=== PATIENT | male | born 1985 | race Caucasian/White ===

== ENCOUNTER 2017-09-06 05:26 | Emergency (ER) | payer SELFPAY | END 2017-09-06 06:28 | disposition home or self-care (01) | LOC: ERS 05:26 | DX: J36 Peritonsillar abscess (principal); F17.210 Nicotine dependence, cigarettes, uncomplicated | CPT/HCPCS: 87081; 87430; 99406 ==

== ENCOUNTER 2018-05-11 17:23 | Emergency (ER) | payer SELFPAY | END 2018-05-11 18:13 | disposition home or self-care (01) | LOC: SCSER 17:23 | DX: L03.311 Cellulitis of abdominal wall (principal); F17.210 Nicotine dependence, cigarettes, uncomplicated | CPT/HCPCS: 99283 ==

== ENCOUNTER 2018-05-14 19:18 | Inpatient (IN) | payer SELFPAY ==
[2018-05-14 19:49] LABS: #Basophils 0.1 thou/uL (0.0-0.2); #Eosinphils 0.1 thou/uL (0.0-0.7); #Lymphocytes 2.7 thou/uL (1.20-3.40); #Monocytes 0.9 thou/uL (0.11-0.59); #Neutrophils 8.5 thou/uL (1.40-6.50); %Basophils 0.5 % (0.0-1.0); %Eosinophils 0.5 % (0.0-10.0); %Lymphocytes 22.3 % (21.0-51.0); %Monocytes 7.3 % (0.0-10.0); %Neutrophils 69.4 % (42.0-75.0); Hemoglobin 15.8 g/dL (14.0-18.0); Mean Corpuscular Hemoglobin 28.4 pg (27.0-31.0); Mean Corpuscular Volume 81.3 fL (78.0-98.0); Mean Platelet Volume 9.1 fL (7.4-10.4); Platelet Count 161 thou/uL (130-400); RBC Distribution Width 10.4 % (11.5-14.5); Red Blood Cell (RBC) Count 5.56 mill/uL (4.70-6.10); White Blood Cell (WBC) Count 12.2 thou/uL (4.8-10.8)
[2018-05-14] MEDS ORDERED: Clindamycin/D5W 900 mg/50 ml Premix Bag ONE (19:56)
[2018-05-14] MEDS ORDERED: Piperacillin/Tazobactam 4.5 GM VIAL ONE (19:56)
[2018-05-14] MEDS ORDERED: Sodium Chloride 0.9% 100 ML ONE (19:58)
[2018-05-14 20:02] LABS: ALT (SGPT) 14 U/L (8-55); AST (SGOT) 14 U/L (5-34); Albumin 4.4 g/dL (3.5-5.0); Alkaline Phosphatase 52 U/L (40-150); Anion Gap 15 mmol/L (10-20); BUN (Urea Nitrogen) 13 mg/dL (8.9-20.6); Bilirubin, Total 0.6 mg/dL (0.2-1.2); Calc. Creatinine Clearance 0 mL/min (70-130); Carbon Dioxide 27 mmol/L (22-29); Chloride 101 mmol/L (98-107); Estimated GFR-MDRD 84; Globulin 3.2 g/dL (2.4-3.5); Glucose 89 mg/dL (70-105); Potassium 4.2 mmol/L (3.5-5.1); Protein, Total 7.6 g/dL (6.0-8.3); Sodium 139 mmol/L (136-145)
[2018-05-14] MEDS ORDERED: Ondansetron ODT 4 MG TAB SL PRN (22:05)
[2018-05-14] MEDS ORDERED: HYDROcodone/Acetaminophen 5/325 mg Tablet PO PRN (22:05)
[2018-05-14] MEDS ORDERED: Ondansetron HCl/PF 4 MG/2 ML Vial IVP PRN (22:05)
[2018-05-14 22:36] VITALS: BMI 24.4
[2018-05-14] MEDS: Nicotine 14 MG PATCH TD SCH (23:03)
[2018-05-14] MEDS: Sodium Chloride 0.9% 1,000 ML IV SCH (23:03)
[2018-05-14] MEDS ORDERED: Vancomycin HCl 1.5 GM in Sodium Chloride 0.9% 250 ML 300 ML IVPB SCH (23:59)
[2018-05-15] MEDS: Piperacillin/Tazobactam 4.5 GM in Sodium Chloride 0.9% 100 ML IVPB SCH ×4 (02:10→21:00)
[2018-05-15] MEDS: HYDROcodone/Acetaminophen 5/325 mg Tablet PO PRN ×2 (02:14→08:37)
--- NOTE | 2018-05-15 03:13 | HP ---
CODE STATUS: FULL CODE. PRIMARY CARE PHYSICIAN: None. CHIEF COMPLAINT: Redness and worsening cellulitis of the right lower quadrant. HISTORY OF PRESENT ILLNESS: A 32-year-old male patient, no significant past medical history. The pa demetri reported that about 5 days ago, he shaved his abdomen and started noticing that he had some pim ples, that started getting worse, associated with abdominal wall swelling, redness, tenderness, drain age, no alleviating factors. Patient was started yesterday on Bactrim and Keflex, but symptoms nely nued to get worse. He went to the ED as he started on broad spectrum antibiotics and we will place h im in the hospital due to abscess of the abdominal wall and failed to outpatient antibiotic. REVIEW OF SYSTEMS: Constitutional: No fever or chills, generalized weakness. Respiratory: No coug h, sputum production or shortness of breath. Cardiovascular: No chest pain, palpitations, shortness of breath. Gastrointestinal: No nausea, vomiting, diarrhea or abdominal pain. RUG HOOKER HAND: No dizziness, headache or feeling lightheaded. Genitourinary: No burning on urination. Extremities: No leg swe lling. Skin: The patient has multiple follicular lesions that are secondarily infected over the low er abdomen, but the main lesion which showing an area of induration of ____ cm with tenderness, redne ss. All other systems reviewed were negative except for the findings mentioned above. PAST MEDICAL HISTORY: No significant past medical history. FAMILY HISTORY: Reviewed and noncontributory for current presentation. PAST SURGICAL HISTORY: Right wrist surgery. PSYCHIATRIC HISTORY: No previous psychiatric history. SOCIAL HISTORY: Patient smokes half a pack per day. ALLERGIES: No known drug allergies reported. MEDICATIONS AT HOME: Bactrim-DS, Keflex and tramadol. PHYSICAL EXAMINATION: VITAL SIGNS: On presentation, blood pressure 152/96, heart rate 97, respiratory rate was 20, tempera ture 97.5, oxygen saturation on room air was 100%. GENERAL: Patient is alert, oriented, not in any acute distress. HEENT: Eyes, normal conjunctivae. Moist oral mucosa. Anicteric. NECK: No JVD. RESPIRATORY: Bilateral air entry. No rales, no wheezing. Symmetric expansion. CARDIOVASCULAR: Normal rate, regular rhythm. No murmur, no gallop, no edema. ABDOMEN: Soft, normal bowel sounds. MUSCULOSKELETAL: Baseline range of motion and strength. No tenderness. SKIN: Warm and intact. No pallor, rash or redness except for the right lower quadrant, there is an area of induration about ____ cm with opening and drainage from the wound, there is surrounding redne ss, tenderness. NEUROLOGIC: Baseline sensorium. No evidence of any focal weakness. Baseline speech. Cranial nerve s seem to be intact. PSYCHIATRIC: Patient is in a good mood. No anxiety. Oriented. Optimal judgment. LABORATORY DATA: Reviewed. White count is 12.2, hemoglobin 15.8, platelet count 161. Chemistry: S odium 139, potassium 4.2, chloride 101, carbon dioxide 27, anion gap 15, BUN 13, creatinine 1.0, GFR 82, glucose 89, lactic acid 1.5, calcium 10. LFTs were normal. ASSESSMENT AND PLAN: Patient will be placed in the hospital with the following medical problems. 1. Right lower quadrant abdominal wall cellulitis, with area of induration likely secondary to absce ss. Patient has significant drainage from wound opening, patient has been started on broad spectrum antibiotics, will continue. Follow cultures. Adjust the treatment as needed. Possible history of s epsis. The patient has heart rate of 90 multiple times, white count 12.2, source is abdominal wall c ellulitis: Treatment as above. Hydrate. 2. Deep venous thrombosis prophylaxis. 3. Every-day smoker, smoked half a pack per day, advised to stop smoking, nicotine patch was ordered . 4. If patient is improving and no concern for deep tissue infection, might need to do a CT abdomen t o make sure examination of the abscess.
[2018-05-15] MEDS ORDERED: Clindamycin/D5W 900 MG in Premix Bag 1 BAG IVPB SCH (06:00)
[2018-05-15] MEDS: Vancomycin HCl 1.25 GM in Sodium Chloride 0.9% 250 ML 250 ML IVPB SCH ×3 (08:34→23:41)
[2018-05-15] MEDS: Sodium Chloride 0.9% 1,000 ML IV SCH (08:34)
[2018-05-15] MEDS: Enoxaparin Sodium 40 MG/0.4 ML SYRINGE SC SCH (08:35)
[2018-05-15] MEDS ORDERED: Loratadine 10 MG TAB PO PRN (11:44)
[2018-05-15] MEDS ORDERED: Famotidine 20 MG TAB PO PRN (11:44)
[2018-05-15] MEDS ORDERED: Loperamide HCl 2 MG CAP PO PRN (11:44)
[2018-05-15] MEDS ORDERED: Milk Of Magnesia 30 ML UDCUP PO PRN (11:44)
[2018-05-15] MEDS ORDERED: Artificial Tears 18 DROP/0.9 ML EA EYE PRN (11:44)
[2018-05-15] MEDS ORDERED: Chloraseptic Spray 180 ml Bottle PO PRN (11:44)
[2018-05-15] MEDS ORDERED: Sodium Chloride 0.65% Nasal 44 ML BOT EA NARE PRN (11:44)
[2018-05-15] MEDS ORDERED: Eucerin (Mineral Oil/Petrolatum,White) 30 gm Jar TOP PRN (11:44)
[2018-05-15] MEDS ORDERED: Temazepam 15 MG CAP PO PRN (11:44)
[2018-05-15] MEDS ORDERED: Ondansetron ODT 4 MG TAB PO PRN (11:44)
[2018-05-15] MEDS ORDERED: hydrALAZINE 20 MG/ML VIAL SLOW IVP PRN (11:44)
[2018-05-15] MEDS ORDERED: Senokot 8.6 MG TAB PO PRN (11:44)
[2018-05-15] MEDS ORDERED: Mag-Al 1200 mg/1200 mg/30 ML UDCUP PO PRN (11:44)
[2018-05-15] MEDS ORDERED: Diabetic Tussin 200 MG/10 ML UDCUP PO PRN (11:44)
--- NOTE | 2018-05-15 11:44 | PDOC.PN ---
- Subjective Encounter Start Date: 05/15/18 Encounter Start Time: 10:30 -: old records requested/rev Patient seen and examined. No new complaints. No overnight events - Objective Resuscitation Status: Resuscitation Status FULL:Full Resuscitation MAR Reviewed: Yes Vital Signs & Weight: Vital Signs (12 hours) Temp Pulse Resp BP Pulse Ox 05/15/18 10:56 97.7 F 92 18 134/83 98 05/15/18 08:00 97.8 F 90 20 05/15/18 07:39 97.8 F 90 20 139/79 97 05/15/18 04:00 98.2 F 98 18 128/81 99 Weight Weight 185 lb 3.013 oz I&O: 05/14/18 05/15/18 05/16/18 06:59 06:59 06:59 Intake Total 1300 Balance 1300 Result Diagrams: 05/14/18 19:40 05/14/18 19:40 Phys Exam - Physical Examination Constitutional: NAD HEENT: PERRLA, moist MMs, sclera anicteric Neck: no JVD, supple Respiratory: no wheezing, no rales, no rhonchi Cardiovascular: RRR, no significant murmur, no rub Gastrointestinal: soft, non-tender, no distention, positive bowel sounds abdominal wall cellulitis noted Musculoskeletal: no edema, pulses present Neurological: non-focal, normal sensation, moves all 4 limbs Lymphatic: no nodes Psychiatric: normal affect, A&O x 3 Skin: no rash, normal turgor Dx/Plan (1) Cellulitis, abdominal wall Code(s): L03.311 - CELLULITIS OF ABDOMINAL WALL Status: Acute (2) Failure of outpatient treatment Code(s): Z78.9 - OTHER SPECIFIED HEALTH STATUS Status: Acute (3) Tobacco abuse Code(s): Z72.0 - TOBACCO USE Status: Chronic - Plan cont current plan of care, continue antibiotics * continue vancomycin and zosyn * monitor clinical response * DC IVF * counselled to quit smoking * medication reviewed as below * symptomatic treatment * pain controlled. Review of Systems - Review of Systems Constitutional: negative: fever, chills, sweats, weakness, malaise, other Eyes: negative: Pain, Vision Change, Conjunctivae Inflammation, Eyelid Inflammation, Redness, Other ENT: negative: Ear Pain, Ear Discharge, Nose Pain, Nose Discharge, Nose Congestion, Mouth Pain, Mouth Swelling, Throat Pain, Throat Swelling, Other Respiratory: negative: Cough, Dry, Shortness of Breath, Hemoptysis, SOB with Excertion, Pleuritic Pain, Sputum, Wheezing Cardiovascular: negative: chest pain, palpitations, orthopnea, paroxysmal nocturnal dyspnea, edema, light headedness, other Gastrointestinal: negative: Nausea, Vomiting, Abdominal Pain, Diarrhea, Constipation, Melena, Hematochezia, Other Genitourinary: negative: Dysuria, Frequency, Incontinence, Hematuria, Retention , Other Musculoskeletal: negative: Neck Pain, Shoulder Pain, Arm Pain, Back Pain, Hand Pain, Leg Pain, Foot Pain, Other - Medications/Allergies Allergies/Adverse Reactions: Allergies Allergy/AdvReac Type Severity Reaction Status Date / Time No Known Allergies Allergy Unverified 05/14/18 22:02 Medications: Current Medications Acetaminophen (Tylenol) 650 mg PO Q4H PRN PRN Reason: Headache/Fever or Pain Enoxaparin Sodium (Lovenox) 40 mg SC 0900 [facility] Last Admin: 05/15/18 08:35 Dose: Not Given Piperacillin Sod/Tazobactam (Sod 4.5 gm/ Sodium Chloride) 100 mls @ 200 mls/hr IVPB 0200,0800,1400,2000 [facility] Stop: 05/19/18 08:20 Last Admin: 05/15/18 10:34 Dose: 100 mls Vancomycin HCl 1.25 gm/ Sodium (Chloride) 250 mls @ 166.667 mls/hr IVPB 0800, 1600,2359 [facility] [place] Last Admin: 05/15/18 08:34 Dose: 250 mls Miscellaneous Medication (Pharmacy To Dose) 0 each IVPB PRN PRN PRN Reason: [facility] TO DOSE Nicotine (Nicoderm Patch) 14 mg TD Q24HR [facility] [place] Last Admin: 05/14/18 23:03 Dose: 14 mg Ondansetron HCl (Zofran) 4 mg IVP Q6H PRN PRN Reason: Nausea/Vomiting Stop: 05/17/18 08:20 Sodium Chloride (Flush - Normal Saline) 10 ml IVF Q12HR [facility] [place] Last Admin: 05/15/18 08:35 Dose: Not Given Sodium Chloride (Flush - Normal Saline) 10 ml IVF PRN PRN PRN Reason: Saline Flush
[2018-05-15] MEDS ORDERED: Acetaminophen/Codeine 30-300mg Tablet PO PRN (11:46)
[2018-05-15] MEDS: Acetaminophen/Codeine 30-300mg Tablet PO PRN (19:08)
[2018-05-15] MEDS: Nicotine 14 MG PATCH TD SCH ×2 (22:07→22:12)
[2018-05-15 22:45] LABS: #Eosinphils 0.2 thou/uL (0.0-0.7); #Lymphocytes 3.6 thou/uL (1.20-3.40); #Monocytes 0.7 thou/uL (0.11-0.59); #Neutrophils 4.2 thou/uL (1.40-6.50); %Basophils 0.2 % (0.0-1.0); %Eosinophils 1.8 % (0.0-10.0); %Lymphocytes 41.2 % (21.0-51.0); %Monocytes 8.4 % (0.0-10.0); %Neutrophils 48.4 % (42.0-75.0); Hemoglobin 14.7 g/dL (14.0-18.0); Mean Corpuscular HGB CONC 35.1 g/dL (32.0-36.0); Mean Corpuscular Hemoglobin 30.2 pg (27.0-31.0); Mean Platelet Volume 7.4 fL (7.4-10.4); Platelet Count 164 thou/uL (130-400); RBC Distribution Width 11.5 % (11.5-14.5); Red Blood Cell (RBC) Count 4.86 mill/uL (4.70-6.10); White Blood Cell (WBC) Count 8.6 thou/uL (4.8-10.8)
[2018-05-15 23:14] LABS: Anion Gap 11 mmol/L (10-20); BUN (Urea Nitrogen) 9 mg/dL (8.9-20.6); Calc. Creatinine Clearance 119 mL/min (70-130); Calcium 9.1 mg/dL (7.8-10.44); Carbon Dioxide 29 mmol/L (22-29); Chloride 105 mmol/L (98-107); Estimated GFR-MDRD 82; Glucose 97 mg/dL (70-105); Potassium 3.7 mmol/L (3.5-5.1); Sodium 141 mmol/L (136-145)
[2018-05-16] MEDS: Piperacillin/Tazobactam 4.5 GM in Sodium Chloride 0.9% 100 ML IVPB SCH ×4 (02:50→19:55)
[2018-05-16] MEDS: Vancomycin HCl 1.25 GM in Sodium Chloride 0.9% 250 ML 250 ML IVPB SCH ×3 (08:10→23:47)
[2018-05-16] MEDS: Enoxaparin Sodium 40 MG/0.4 ML SYRINGE SC SCH (08:12)
--- NOTE | 2018-05-16 12:15 | PDOC.PN ---
- Subjective Encounter Start Date: 05/16/18 Encounter Start Time: 09:20 Patient seen and examined. No new complaints. No overnight events - Objective Resuscitation Status: Resuscitation Status FULL:Full Resuscitation MAR Reviewed: Yes Vital Signs & Weight: Vital Signs (12 hours) Temp Pulse Resp BP Pulse Ox 05/16/18 07:39 97.8 F 72 14 113/75 98 Weight Weight 185 lb 3.013 oz I&O: 05/15/18 05/16/18 05/17/18 06:59 06:59 06:59 Intake Total 1300 Balance 1300 Result Diagrams: 05/15/18 22:38 05/15/18 22:38 Phys Exam - Physical Examination Constitutional: NAD HEENT: PERRLA, moist MMs, sclera anicteric Neck: no JVD, supple Respiratory: no wheezing, no rales, no rhonchi Cardiovascular: RRR, no significant murmur, no rub Gastrointestinal: soft, non-tender, no distention, positive bowel sounds abdominal wall abscess, cellulitis improving Musculoskeletal: no edema, pulses present Neurological: non-focal, normal sensation, moves all 4 limbs Psychiatric: normal affect, A&O x 3 Skin: no rash, normal turgor Dx/Plan (1) Cellulitis, abdominal wall Code(s): L03.311 - CELLULITIS OF ABDOMINAL WALL Status: Acute (2) Failure of outpatient treatment Code(s): Z78.9 - OTHER SPECIFIED HEALTH STATUS Status: Acute (3) Tobacco abuse Code(s): Z72.0 - TOBACCO USE Status: Chronic - Plan cont current plan of care, continue antibiotics * will consult general surgery, as he will need I & D * continue vancomycin and zosyn * medication reviewed as below * symptomatic treatment * overall improving cellulitis. Review of Systems - Review of Systems Eyes: negative: Pain, Vision Change, Conjunctivae Inflammation, Eyelid Inflammation, Redness, Other ENT: negative: Ear Pain, Ear Discharge, Nose Pain, Nose Discharge, Nose Congestion, Mouth Pain, Mouth Swelling, Throat Pain, Throat Swelling, Other Respiratory: negative: Cough, Dry, Shortness of Breath, Hemoptysis, SOB with Excertion, Pleuritic Pain, Sputum, Wheezing Cardiovascular: negative: chest pain, palpitations, orthopnea, paroxysmal nocturnal dyspnea, edema, light headedness, other Gastrointestinal: negative: Nausea, Vomiting, Abdominal Pain, Diarrhea, Constipation, Melena, Hematochezia, Other Genitourinary: negative: Dysuria, Frequency, Incontinence, Hematuria, Retention , Other Musculoskeletal: negative: Neck Pain, Shoulder Pain, Arm Pain, Back Pain, Hand Pain, Leg Pain, Foot Pain, Other Skin: negative: Rash, Lesions, Gonzalo, Bruising, Other - Medications/Allergies Allergies/Adverse Reactions: Allergies Allergy/AdvReac Type Severity Reaction Status Date / Time No Known Allergies Allergy Unverified 05/14/18 22:02 Medications: Current Medications Acetaminophen (Tylenol) 650 mg PO Q4H PRN PRN Reason: Headache/Fever or Pain Acetaminophen/Codeine Phosphate (Tylenol #3) 1 tab PO Q4H PRN PRN Reason: Moderate Pain (4-6) Acetaminophen/Codeine Phosphate (Tylenol #3) 2 tab PO Q4H PRN PRN Reason: Pain Last Admin: 05/15/18 19:08 Dose: 2 tab Al Hydroxide/Mg Hydroxide (Maalox) 15 ml PO Q4H PRN PRN Reason: Heartburn or Indigestion Artificial Tears (Tears Naturale) 0 drop EA EYE PRN PRN PRN Reason: Dry Eyes Enoxaparin Sodium (Lovenox) 40 mg SC 0900 [facility] Last Admin: 05/16/18 08:12 Dose: Not Given Famotidine (Pepcid) 20 mg PO BIDPRN PRN PRN Reason: Heartburn or Indigestion Guaifenesin (Robitussin Sf) 200 mg PO Q4H PRN PRN Reason: Cough Hydralazine HCl (Apresoline) 10 mg SLOW IVP Q4H PRN PRN Reason: Systolic BP > 180 Piperacillin Sod/Tazobactam (Sod 4.5 gm/ Sodium Chloride) 100 mls @ 200 mls/hr IVPB 0200,0800,1400,2000 [facility] Stop: 05/19/18 08:20 Last Admin: 05/16/18 07:00 Dose: 100 mls Vancomycin HCl 1.25 gm/ Sodium (Chloride) 250 mls @ 166.667 mls/hr IVPB 0800, 1600,2359 [facility] Last Admin: 05/16/18 08:10 Dose: 250 mls Loperamide HCl (Imodium) 2 mg PO PRN PRN PRN Reason: Diarrhea/Loose Stools Loratadine (Claritin) 10 mg PO DAILYPRN PRN PRN Reason: Sinus Symptoms Magnesium Hydroxide (Milk Of Magnesium) 30 ml PO DAILYPRN PRN PRN Reason: Constipation Mineral Oil/White Petrolatum (Eucerin Cream) 0 gm TOP BIDPRN PRN PRN Reason: Dry Skin Miscellaneous Medication (Pharmacy To Dose) 0 each IVPB PRN PRN PRN Reason: [facility] TO DOSE Nicotine (Nicoderm Patch) 14 mg TD Q24HR [facility] Last Admin: 05/15/18 22:12 Dose: Not Given Ondansetron HCl (Zofran) 4 mg IVP Q6H PRN PRN Reason: Nausea/Vomiting Stop: 05/17/18 08:20 Ondansetron HCl (Zofran Odt) 4 mg PO Q6H PRN PRN Reason: Nausea/Vomiting Phenol (Chloraseptic [place] 180 Ml Bot) 0 ml PO PRN PRN PRN Reason: Sore Throat Senna (Senokot) 2 tab PO HSPRN PRN PRN Reason: Constipation Sodium Chloride (Flush - Normal Saline) 10 ml IVF Q12HR [facility] Last Admin: 05/16/18 08:12 Dose: Not Given Sodium Chloride (Flush - Normal Saline) 10 ml IVF PRN PRN PRN Reason: Saline Flush Sodium Chloride ([place] Nasal [place] 0.65%) 0 ml EA NARE QIDPRN PRN PRN Reason: Nasal Congestion Temazepam (Restoril) 15 mg PO HSPRN PRN PRN Reason: Insomnia
[2018-05-16] MEDS: Acetaminophen/Codeine 30-300mg Tablet PO PRN (13:10)
[2018-05-16 14:08] VITALS: TEMP 98.2
--- NOTE | 2018-05-16 19:48 | ULT ---
LIMITED ULTRASOUND OF THE SOFT TISSUES ABDOMINAL WALL 05/16/18 HISTORY: Open wound right lower quadrant of abdomen. FINDINGS: Limited sonographic evaluation in the region of concern is performed. There is a mild heterogeneous a raphael at the level and just beneath the skin surface measuring 2.3 cm x 0.4 cm which may be region of p atient's wound. No additional fluid collection is visualized. IMPRESSION: Subcutaneous edema with findings likely corresponding to patient's wound in the most anterior aspect of the abdomen in region of concern. POS: JAZH
[2018-05-16] MEDS: Nicotine 14 MG PATCH TD SCH (19:55)
[2018-05-16 19:59] VITALS: BP 121/71
[2018-05-16] MEDS: Acetaminophen 325 MG TAB PO PRN (23:52)
--- NOTE | 2018-05-16 23:52 | CON ---
DATE OF CONSULTATION: 05/16/2018 REQUESTING PHYSICIAN: Dr. Benson. ATTENDING PHYSICIAN: Dr. Villalta. HISTORY OF PRESENT ILLNESS: Mr. Chow is a 32-year-old male, who presented to the [place] [facility] on 05/11/2018, complaining of right lower quadrant anterior abdominal wall redness after shaving. He reports that the area was getting more red and had increased swelling and tenderness. He was prescribed antibiotics and was discharged home. He said his symptoms continued to worsen. He then went back to the ED and he was started on broad spectrum antibiotics and placed in the hospital on IV antibiotics. Trauma Services has been consulted for evaluation for need for urgent surgical intervention. The patient is now seen on the regular general floor. He reports that his pain is significantly decreased. Area of redness and induration was marked on initial ED visit and has significantly decreased in size and is now spontaneously draining. PAST MEDICAL HISTORY: None. PAST SURGICAL HISTORY: Right wrist. SOCIAL HISTORY: Tobacco half pack per day. Alcohol none. Drugs none. ALLERGIES: No known drug allergies. LABORATORY DATA: CBC: WBC 8.6, down from 12.2 yesterday; RBC 4.86; hemoglobin 14.7; hematocrit 41.8; platelets 164. Chemistry: Sodium 141, potassium 3.7, chloride 105, carbon dioxide 29, BUN 9, creatinine 1.04, glucose 97. ASSESSMENT AND PLAN: The patient with a cellulitis to right lower quadrant abdominal wall. This appears to be improving since admission to the hospital and initiation of IV antibiotics. Area is now spontaneously draining. We recommend obtaining ultrasound to evaluate fluid collection. The patient may benefit from I&D, however there is no indication for urgent surgical intervention at this time. We will continue to follow with you and consider surgical intervention should his clinical condition warrant. Monitor serial labs. Continue IV antibiotics. This patient was discussed with Dr. Villalta at the time of this consultation. DELLA
[2018-05-17] MEDS: Piperacillin/Tazobactam 4.5 GM in Sodium Chloride 0.9% 100 ML IVPB SCH ×3 (02:15→13:04)
[2018-05-17] MEDS: Acetaminophen 325 MG TAB PO PRN (09:29)
[2018-05-17] MEDS: Enoxaparin Sodium 40 MG/0.4 ML SYRINGE SC SCH (09:30)
[2018-05-17] MEDS: Vancomycin HCl 1.25 GM in Sodium Chloride 0.9% 250 ML 250 ML IVPB SCH ×2 (10:10→18:54)
--- NOTE | 2018-05-17 11:54 | PDOC.PN ---
- Subjective Encounter Start Date: 05/17/18 Encounter Start Time: 08:10 Patient seen and examined. No new complaints. No overnight events abscess started self draining per pt since last night - Objective Resuscitation Status: Resuscitation Status FULL:Full Resuscitation MAR Reviewed: Yes Vital Signs & Weight: Vital Signs (12 hours) Temp Pulse Resp Pulse Ox 05/17/18 08:00 98.2 F 78 16 98 Weight Weight 185 lb 3.013 oz Result Diagrams: 05/15/18 22:38 05/15/18 22:38 Radiology Reviewed by me: Yes (US abdominal wall) Phys Exam - Physical Examination Constitutional: NAD HEENT: PERRLA, moist MMs, sclera anicteric Neck: no JVD, supple Respiratory: no wheezing, no rales, no rhonchi Cardiovascular: RRR, no significant murmur, no rub Gastrointestinal: soft, non-tender, no distention, positive bowel sounds abdominal wall cellulitis improving, abscess draining Musculoskeletal: no edema, pulses present Neurological: non-focal, normal sensation, moves all 4 limbs Psychiatric: normal affect, A&O x 3 Skin: no rash, normal turgor Dx/Plan (1) Cellulitis, abdominal wall Code(s): L03.311 - CELLULITIS OF ABDOMINAL WALL Status: Acute (2) Failure of outpatient treatment Code(s): Z78.9 - OTHER SPECIFIED HEALTH STATUS Status: Acute (3) Tobacco abuse Code(s): Z72.0 - TOBACCO USE Status: Chronic - Plan cont current plan of care, continue antibiotics * continue wound care * continue vancomycin and zosyn * will see if surgeon recommends any debridement or not * expecting discharge soon on oral antibiotics * pain controlled * medication reviewed as below * symptomatic treatment. Review of Systems - Review of Systems Constitutional: negative: fever, chills, sweats, weakness, malaise, other ENT: negative: Ear Pain, Ear Discharge, Nose Pain, Nose Discharge, Nose Congestion, Mouth Pain, Mouth Swelling, Throat Pain, Throat Swelling, Other Respiratory: negative: Cough, Dry, Shortness of Breath, Hemoptysis, SOB with Excertion, Pleuritic Pain, Sputum, Wheezing Cardiovascular: negative: chest pain, palpitations, orthopnea, paroxysmal nocturnal dyspnea, edema, light headedness, other Gastrointestinal: negative: Nausea, Vomiting, Abdominal Pain, Diarrhea, Constipation, Melena, Hematochezia, Other Genitourinary: negative: Dysuria, Frequency, Incontinence, Hematuria, Retention , Other Musculoskeletal: negative: Neck Pain, Shoulder Pain, Arm Pain, Back Pain, Hand Pain, Leg Pain, Foot Pain, Other - Medications/Allergies Allergies/Adverse Reactions: Allergies Allergy/AdvReac Type Severity Reaction Status Date / Time No Known Allergies Allergy Unverified 05/14/18 22:02 Medications: Current Medications Acetaminophen (Tylenol) 650 mg PO Q4H PRN PRN Reason: Headache/Fever or Pain Last Admin: 05/17/18 09:29 Dose: 650 mg Acetaminophen/Codeine Phosphate (Tylenol #3) 1 tab PO Q4H PRN PRN Reason: Moderate Pain (4-6) Acetaminophen/Codeine Phosphate (Tylenol #3) 2 tab PO Q4H PRN PRN Reason: Pain Last Admin: 05/16/18 13:10 Dose: 2 tab Al Hydroxide/Mg Hydroxide (Maalox) 15 ml PO Q4H PRN PRN Reason: Heartburn or Indigestion Artificial Tears (Tears Naturale) 0 drop EA EYE PRN PRN PRN Reason: Dry Eyes Enoxaparin Sodium (Lovenox) 40 mg SC 0900 [facility] Last Admin: 05/17/18 09:30 Dose: Not Given Famotidine (Pepcid) 20 mg PO BIDPRN PRN PRN Reason: Heartburn or Indigestion Guaifenesin (Robitussin Sf) 200 mg PO Q4H PRN PRN Reason: Cough Hydralazine HCl (Apresoline) 10 mg SLOW IVP Q4H PRN PRN Reason: Systolic BP > 180 Piperacillin Sod/Tazobactam (Sod 4.5 gm/ Sodium Chloride) 100 mls @ 200 mls/hr IVPB 0200,0800,1400,2000 [facility] Stop: 05/19/18 08:20 Last Admin: 05/17/18 09:29 Dose: 100 mls Vancomycin HCl 1.25 gm/ Sodium (Chloride) 250 mls @ 166.667 mls/hr IVPB 0800, 1600,2359 [facility] Last Admin: 05/17/18 10:10 Dose: 250 mls Loperamide HCl (Imodium) 2 mg PO PRN PRN PRN Reason: Diarrhea/Loose Stools Loratadine (Claritin) 10 mg PO DAILYPRN PRN PRN Reason: Sinus Symptoms Magnesium Hydroxide (Milk Of Magnesium) 30 ml PO DAILYPRN PRN PRN Reason: Constipation Mineral Oil/White Petrolatum (Eucerin Cream) 0 gm TOP BIDPRN PRN PRN Reason: Dry Skin Miscellaneous Medication (Pharmacy To Dose) 0 each IVPB PRN PRN PRN Reason: [facility] TO DOSE Nicotine (Nicoderm Patch) 14 mg TD Q24HR [facility] Last Admin: 05/16/18 19:55 Dose: Not Given Ondansetron HCl (Zofran Odt) 4 mg PO Q6H PRN PRN Reason: Nausea/Vomiting Phenol (Chloraseptic [place] 180 Ml Bot) 0 ml PO PRN PRN PRN Reason: Sore Throat Senna (Senokot) 2 tab PO HSPRN PRN PRN Reason: Constipation Sodium Chloride (Flush - Normal Saline) 10 ml IVF Q12HR [facility] Last Admin: 05/17/18 09:30 Dose: 10 ml Sodium Chloride (Flush - Normal Saline) 10 ml IVF PRN PRN PRN Reason: Saline Flush Sodium Chloride ([place] Nasal [place] 0.65%) 0 ml EA NARE QIDPRN PRN PRN Reason: Nasal Congestion Temazepam (Restoril) 15 mg PO HSPRN PRN PRN Reason: Insomnia
--- NOTE | 2018-05-17 20:38 | PRG ---
DATE OF SERVICE: 05/17/2018 SUBJECTIVE: Mr. Chow is awake and alert. He was admitted on 05/14/2018 with lower abdominal cell ulitis. He has been on IV antibiotics. Soft tissue ultrasound of the abdomen yesterday revealed no fluid collection. I examined the patient today. Patient reports marked decrease in low abdominal pa in. He has normal bowel habits, has no nausea or vomiting, tolerating general diet. OBJECTIVE: ABDOMEN: Reveals nontender, nondistended abdomen. There is a nearly resolved redness around the wou nd. There is an area of 5 x 6 cm of redness with a central portion that is open, but not draining. There clearly is no gross flocculence or purulence. The appearance of the wound is consistent with i nsect bite. IMPRESSION AND PLAN: Lower abdominal wall cellulitis, improving. This is likely an insect bite with no evidence of abscess either clinically or radiographically. I will recommend; therefore, I will c ontinue with local wound care and antibiotic therapy. There is no surgical indication for this patie nt at this time. General Surgery will sign off and be available to reevaluate the patient on demand.
--- NOTE | 2018-05-18 07:28 | DIS ---
DATE OF ADMISSION: 05/14/2018 DATE OF DISCHARGE: 05/17/2018 PRIMARY CARE PHYSICIAN: [facility] call admission. DISCHARGE DISPOSITION: Home. PRIMARY DISCHARGE DIAGNOSES: Abdominal wall cellulitis, failure of outpatient therapy. SECONDARY DISCHARGE DIAGNOSIS: Tobacco abuse disorder. PRIMARY PROCEDURE AND OPERATION: None. RADIOLOGICAL INVESTIGATION: Soft tissue ultrasound. SIGNIFICANT LABORATORY DATA: Hemoglobin 14.7, WBC 8.6, platelet 164, creatinine 1.04. LFT normal. Electrolytes normal. Culture negative. DISCHARGE MEDICATIONS: Patient will continue his previous medication, Keflex 500 mg q. 6 hourly and Bactrim-DS 1 tablet twice daily. CONTRAINDICATIONS: None. CODE STATUS: FULL CODE. INPATIENT CONSULTANTS: Dr. Sanjeev Villalta was consulted while in hospital. TEST RESULTS PENDING ON DISCHARGE: None. ALLERGIES: No known drug allergy. DISCHARGE PLAN: Post hospital, the patient left against medical advice. HOSPITAL COURSE: A 32-year-old male who was admitted by Dr. Rizzo. Please see his H&P for furthe r details. This patient was suffering from abdominal wall cellulitis. He was treated on an outpatie nt basis with the Keflex and Bactrim-DS, but he did not see any significant improvement, and that is why he decided to come to emergency room and subsequently he was admitted in the hospital. He was tr eated with vancomycin and Zosyn. He had improvement in cellulitis, but that was in the central part some abscess looking induration and that is why we did soft tissue ultrasound. We consulted Dr. Mena lake for possible need of I&D, but based on that, he was not needing any surgical intervention. He was requiring only local wound care. We treated him with IV vancomycin and Zosyn with improvement. The patient was afebrile while in hospital. He was hemodynamically stable. In the evening, he decided t o leave against medical advice without finishing complete course of IV antibiotic therapy while in [facility]. The patient is seen and examined at bedside today. Please see my progress note from that date for mo re detail.
== END 2018-05-17 19:00 | disposition left against medical advice (07) | DRG 603 ==
LOC: SCSER 19:18 → T4-A 21:34 → SURG A 05-16 09:30 → T4-A 05-16 09:44 → SURG A 05-16 09:45 → T4-A 05-16 09:56
PROVIDERS: ADMIT Hospitalist; ATTEND Hospitalist
DX: L03.311 Cellulitis of abdominal wall (principal); F17.210 Nicotine dependence, cigarettes, uncomplicated
CPT/HCPCS: 36415; 76705; 80048; 80053; 80202; 83605; 85025; 87040; 94760; 96365; 96367; 96375; A4216; J1650; J2270; J2543; J3370; J3490; J7050

== ENCOUNTER 2018-08-27 15:13 | Emergency (ER) | payer SELFPAY ==
[2018-08-27] MEDS ORDERED: metroNIDAZOLE 500 MG TAB ONE (16:27)
[2018-08-27] MEDS ORDERED: cefTRIAXone\\ROCEPHIN 250 MG VIAL ONE (16:27)
[2018-08-27] MEDS ORDERED: Lidocaine 1% PF 5 ML VIAL ONE (16:27)
[2018-08-27] MEDS ORDERED: Azithromycin 250 MG TAB ONE (16:27)
[2018-08-29 22:23] LABS: Chlamydia by PCR Not Detected (NotDetected); GC by PCR DETECTED (NotDetected)
== END 2018-08-27 16:54 | disposition home or self-care (01) ==
LOC: SCSER 15:13
DX: N34.2 Other urethritis (principal); F17.210 Nicotine dependence, cigarettes, uncomplicated
CPT/HCPCS: 87491; 87591; 96372; J0696; J2001

== ENCOUNTER 2018-10-09 12:19 | Emergency (ER) | payer SELFPAY ==
[2018-10-09] MEDS ORDERED: Lidocaine 1% w/Epinephrine 1:100K 20 ML VIAL ONE (12:38)
[2018-10-09] MEDS ORDERED: Ibuprofen 800 MG TAB ONE (12:56)
== END 2018-10-09 13:30 | disposition home or self-care (01) ==
LOC: SCSER 12:19
DX: L02.11 Cutaneous abscess of neck (principal); L03.221 Cellulitis of neck; F17.210 Nicotine dependence, cigarettes, uncomplicated
CPT/HCPCS: 10061; J2001

== ENCOUNTER 2019-06-20 01:49 | Emergency (ER) | payer SELFPAY ==
[2019-06-20 02:32] LABS: #Eosinphils 0.2 thou/uL (0.0-0.7); #Lymphocytes 4.6 thou/uL (1.20-3.40); #Monocytes 0.9 thou/uL (0.11-0.59); %Basophils 0.3 % (0.0-1.0); %Eosinophils 1.7 % (0.0-10.0); %Lymphocytes 47.2 % (21.0-51.0); %Monocytes 9.6 % (0.0-10.0); %Neutrophils 41.2 % (42.0-75.0); Hemoglobin 14.6 g/dL (14.0-18.0); Mean Corpuscular HGB CONC 35.2 g/dL (32.0-36.0); Mean Corpuscular Hemoglobin 29.8 pg (27.0-31.0); Mean Corpuscular Volume 84.6 fL (78.0-98.0); Mean Platelet Volume 8.1 fL (7.4-10.4); Platelet Count 149 thou/uL (130-400); RBC Distribution Width 11.8 % (11.5-14.5); Red Blood Cell (RBC) Count 4.92 mill/uL (4.70-6.10); White Blood Cell (WBC) Count 9.8 thou/uL (4.8-10.8)
[2019-06-20 02:53] LABS: ALT (SGPT) 17 U/L (8-55); AST (SGOT) 19 U/L (5-34); Albumin 4.3 g/dL (3.5-5.0); Alkaline Phosphatase 51 U/L (40-150); Anion Gap 11 mmol/L (10-20); BUN (Urea Nitrogen) 15 mg/dL (8.9-20.6); Bilirubin, Total 0.3 mg/dL (0.2-1.2); Calc. Creatinine Clearance 0 mL/min (70-130); Calcium 9.8 mg/dL (7.8-10.44); Carbon Dioxide 28 mmol/L (22-29); Chloride 105 mmol/L (98-107); Estimated GFR-MDRD 60; Globulin 2.9 g/dL (2.4-3.5); Glucose 99 mg/dL (70-105); Protein, Total 7.2 g/dL (6.0-8.3); Sodium 140 mmol/L (136-145)
--- NOTE | 2019-06-20 07:53 | CT ---
PRELIMINARY REPORT/[facility]/EMERGENCY AFTER HOURS PROCEDURE: EXAM: CT Maxillofacial With Contrast EXAM DATE/TIME: 06/20/2019 2:40 AM CLINICAL HISTORY: 33 years old, male; ER 7. Facial swelling; C/O x 3 days of worsening swelling of right facial lumps. PT states first noticed small bumps to face after he had his hair trimmed, noting that the same clipp ers were used on his head as had been used on the individual before him, who had similar bumps on his head TECHNIQUE: Imaging protocol: Computed tomography images of the face with intravenous contrast. COMPARISON: No relevant prior studies available. FINDINGS: No acute fracture. Areas of right facial / right scalp soft tissue edema. No discrete soft tissue abs cess is identified. Normal orbits bilaterally without retro-orbital masses. No significant disease of the paranasal sinuses. IMPRESSION: Areas of right facial / right scalp soft tissue edema. No discrete soft tissue abscess is identified. Thank you for allowing us to participate in the care of your patient. Dictated and Authenticated by: Camilo Vazquez MD 06/20/2019 3:51 AM Central Time ([place] & [place]) FINAL REPORT CT FACIAL BONES WITH IV CONTRAST: I agree with the preliminary report given by Dr. Camilo Vazquez of [facility]. POS: [facility]
[2019-06-20] MEDS ORDERED: Iopamidol 370 76% 100 ML VIAL ONE (10:54)
== END 2019-06-20 04:24 ==
LOC: ERS 01:49
DX: L03.211 Cellulitis of face (principal); F17.210 Nicotine dependence, cigarettes, uncomplicated; Z79.899 Other long term (current) drug therapy
CPT/HCPCS: 36415; 70487; 80053; 85025; Q9967

== ENCOUNTER 2021-06-11 01:51 | Emergency (ER) | payer OTHER, SELFPAY ==
[2021-06-11] MEDS ORDERED: Lidocaine 1% (PF) 30 ML VIAL ONE (02:24)
== END 2021-06-11 03:24 ==
LOC: ERS 01:51
DX: S01.112A Laceration without foreign body of left eyelid and periocular area, initial encounter (principal); F17.210 Nicotine dependence, cigarettes, uncomplicated; Y04.0XXA Assault by unarmed brawl or fight, initial encounter
CPT/HCPCS: 12011; J2001